=== PATIENT | female | born 2000 | race Caucasian/White ===

== ENCOUNTER 2021-03-15 16:33 | Emergency (ER) | payer OTHER ==
[~2021-03-15] VITALS: Ht 157.5 cm; Wt 49.9 kg
[2021-03-15 17:58] LABS: INFLUENZA A ANTIGEN Negative (Negative); INFLUENZA B ANTIGEN Negative (Negative)
[2021-03-15] MEDS ORDERED: PREDNISONE 20 M20 MG PO (18:11)
[2021-03-15] MEDS ORDERED: ZOFRAN ODT4 MG PO (18:11)
[2021-03-15 18:25] VITALS: BP 130/82
== END 2021-03-15 18:25 | disposition home or self-care (01) ==
LOC: M.ERS 16:33
PROVIDERS: Family Medicine
DX: B34.9 Viral infection, unspecified (principal); Z20.822 Contact with and (suspected) exposure to COVID-19; R11.2 Nausea with vomiting, unspecified; Z98.890 Other specified postprocedural states